=== PATIENT | female | born 1955 | race Caucasian/White ===

== ENCOUNTER 2017-09-18 07:53 | Day surgery (SDC) ==
[2014-12-12 03:41] VITALS: BMI 38.0
[2017-09-18 08:17] VITALS: TEMP 98.8
[2017-09-18] MEDS ORDERED: LIDOCAINE 1% 20 ML MDV ID STA (08:23)
[2017-09-18] MEDS ORDERED: ROMAZICON IVP ONE (09:45)
[2017-09-18] MEDS ORDERED: SUBLIMAZE ONE (09:45)
[2017-09-18] MEDS ORDERED: VERSED ONE (09:45)
[2017-09-18] MEDS ORDERED: DIPRIVAN 20 ML VIAL IVP ONE (09:45)
[2017-09-18 10:57] VITALS: BP 115/52
--- NOTE | 2017-09-19 14:03 | OP ---
INDICATIONS FOR PROCEDURE: 61 year old female presents for endoscopy and colonoscopy. She is having intermittent dysphagia to solid foods. She also has a history of colon polyps with unknown histology. She has a family history of colon cancer involving her mother in her 60's. The patient's last colonoscopy was 5 years ago. MEDICATIONS: SEE ANESTHESIA NOTES. PROCEDURE: ENDOSCOPY, ESOPHAGEAL BIOPSY, DOMINICAN DILATATION COLONOSCOPY, SNARE POLYPECTOMY REPORT: The risks, benefits, alternatives and limitations were discussed in detail with the patient. Informed consent was obtained. After adequate sedation was achieved, the video endoscope was introduced in the posterior pharynx and esophagus under direct vision and easily advanced down to the second portion of the duodenum. I then slowly withdrew. The duodenal mucosa appeared unremarkable as did the duodenal bulb. The antrum body was relatively unremarkable. The scope was retroflexed to look at the cardia and fundus which was unremarkable. The scope was anteflexed and withdrawn back through the esophagus. The GE junction was irregular and there was one small break in the esophagus consistent with acid reflux. In the middistal esophagus there was also longitudinal furrows suggestive of reflux although eosinophilic esophagitis is a possibility. I suspect this is more reflux based on her history and appearance. I biopsied the regular GE junction multiple times for histological review. I then biopsied a couple areas of the furrows in the midesophagus. I then advanced the scope back down the gastric lumen and placed the guidewire. Over the guidewire I easily advanced the 51 [place] Spanish Dilator. The patient tolerated the procedure well with stable vital signs and pulse oximetry throughout. The patient's bed was turned. A digital rectal exam revealed good tone, no masses. The colonoscope was introduced into the rectum and advanced under direct visual guidance to the cecum. To get to the cecum required external pressures to advance the scope beyond the hepatic flexure. Once I was in the cecum and I was able to clearly identify the appendiceal orifice and IC valve. There is mucousy adherent stool in the cecum and proximal ascending colon I washed and suctioned this off as best as possible. I was able to identify a small 2-3mm polyp in the cecum. There was destroyed using hot snare technique. Withdrawing the scope in circumferential manner looking on the proximal and distal sides of folds and flexures revealed a small 5mm to 6mm sessile in the proximal transverse and this was removed by snare technique. In the distal sigmoid there was a diminutive polyp that I destroyed using a snare. No other abnormalities were noted including retroflex view of the anal canal. The prep was good as described above. The withdraw time was 17 minutes and 51 seconds. The patient tolerated the procedure well with stable vital signs and pulse oximetry throughout. IMPRESSION: 1. Reflux esophagitis 2. Longitudinal furrows in the esophagus suggestive of reflux 3. Regular GE junction, biopsied 4. Successful passive dilation of the esophagus 5. 3 colonic polyps removed or destroyed RECOMMENDATIONS: 1. Strict reflux precautions 2. I suggest that we treat her with PPI therapy and I provided prescription for Pantoprazole 40mg daily. I will have her take this daily for 2 months then she can use it on a PRN basis 3. Await esophageal biopsy results. If there is evidence of Toure's then I recommend repeat endoscopy examination again 3 years otherwise as needed 4. Await colon pathology results if everything is benign as expected I recommend repeat colonoscopy examination again in 5 years or sooner if there are signs or symptoms to indicate otherwise. 5. We will see her back in the office as needed. CC: Dr. Michael ORDOÑEZ
== END 2017-09-18 11:45 | disposition home or self-care (01) ==
LOC: SURG 07:53
PROVIDERS: ATTEND Internal Medicine Gastroenterology
DX: Z09 Encounter for follow-up examination after completed treatment for conditions other than malignant neoplasm (principal); Z86.010 Personal history of colon polyps; D12.3 Benign neoplasm of transverse colon; D13.1 Benign neoplasm of stomach; D13.0 Benign neoplasm of esophagus; R13.19 Other dysphagia; K22.8 Other specified diseases of esophagus; K21.0 Gastro-esophageal reflux disease with esophagitis; Z80.0 Family history of malignant neoplasm of digestive organs

== ENCOUNTER 2018-03-18 09:56 | Outpatient (CLI) ==
[2014-12-12 03:41] VITALS: BMI 38.0
--- NOTE | 2018-03-18 11:07 | CT ---
EXAM: CT of the chest without contrast History: Chest pain and dyspnea. Comparison: Chest radiograph 02/16/2017 Technique: Multiplanar CT images through the thorax were obtained without the administration of IV c ontrast Findings: Heart size is normal. No pericardial effusion. Coronary calcifications. No thoracic aor tic aneurysm. No pathologically enlarged thoracic lymph nodes. Calcified granulomas seen within the thorax. No consolidation. No pleural fluid and no pneumothorax. No suspicious lung masses or lung nodules. Peripheral ground-glass changes more noticeable at the lung bases. Within the visualized upper abdomen, status post cholecystectomy. The liver is fatty. No acute osse ous abnormalities. Impression: 1. Peripheral ground-glass changes can be compatible with nonspecific interstitial pneumonitis or nam bpleural atelectasis. There is no consolidated pneumonia. 2. Coronary artery disease. 3. Old granulomatous disease. 4. Hepatic steatosis
== END 2018-03-18 09:57 | disposition home or self-care (01) ==
LOC: RAD 09:56
PROVIDERS: ATTEND Nurse Practitioner Family
DX: R07.9 Chest pain, unspecified (principal); R06.00 Dyspnea, unspecified

== ENCOUNTER 2018-11-19 08:47 | Outpatient (POV) ==
[2014-12-12 03:41] VITALS: BMI 38.0
== END 2018-11-19 17:00 ==
LOC: OUTPT 08:47
PROVIDERS: ATTEND Otolaryngology
DX: H91.90 Unspecified hearing loss, unspecified ear (principal)

== ENCOUNTER 2019-02-25 12:22 | Outpatient (CLI) ==
[2014-12-12 03:41] VITALS: BMI 38.0
--- NOTE | 2019-02-25 13:05 | US ---
EXAM: Ultrasound of the right axilla. History: Right axillary mass. Technique: Multiple sonographic images through the right axilla were obtained. Color duplex Doppler was used to interrogate vascular flow. Findings / impression: 0.6 cm x 0.3 cm x 0.5 cm mass just beneath the skin within the right axilla. This probably represents a lymph node and is not pathologically enlarged. Recommend followup ultras ound in 6 months to document stability or resolution. Patient should follow up sooner if the abnorma lity appears to increase in size.
--- NOTE | 2019-02-25 13:06 | US ---
EXAM: Real time ultrasound of the right neck region of interest HISTORY: Right-sided neck knot COMPARISON: None. FINDINGS/IMPRESSION: Focused ultrasound of the right neck subcutaneous tissues region of interest. No subcutaneous flexio n or focal abnormality and the region of interest. Directly corresponding to patient's palpable saeid on of interest there is a lymph node with fatty hilum which measures 0.96 x 0.47 x 0.74 cm, which is normal limits for size.
== END 2019-02-25 12:23 | disposition home or self-care (01) ==
LOC: RAD 12:22
PROVIDERS: ATTEND Internal Medicine
DX: R59.1 Generalized enlarged lymph nodes (principal); R52 Pain, unspecified
CPT/HCPCS: 76882